=== PATIENT | female | born 2005 | race Caucasian/White ===

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

== ENCOUNTER 2024-10-17 23:50 | Inpatient (IN) | payer MEDICAID ==
[~2024-10-17] VITALS: Ht 167.6 cm; Wt 90.1 kg
[2024-10-18 00:09] LABS: BASOPHILS % (AUTO) 0.6 % (0-1); EOSINOPHILS # (AUTO) 0.2 X10'3 (0-0.9); EOSINOPHILS % (AUTO) 2.7 % (0-6); HEMATOCRIT 40.2 % (35.0-45.0); HEMOGLOBIN 14.2 g/dl (12.0-16.0); LYMPHOCYTES # (AUTO) 2.5 X10'3 (1.1-4.8); LYMPHOCYTES % (AUTO) 34.8 % (21-51); MEAN CORPUSCULAR HEMOGLOBIN 30.4 PG (27.0-31.0); MEAN CORPUSCULAR HGB CONC 35.4 g/dL (33.0-36.5); MEAN CORPUSCULAR VOLUME 85.9 FL (78-98); MONOCYTES # (AUTO) 0.5 X10'3 (0-0.9); MONOCYTES % (AUTO) 6.7 % (2-12); NEUTROPHILS % (AUTO) 55.2 % (42-75); PLATELET COUNT 320 X10'3 (140-440); RED BLOOD COUNT 4.68 X10'6 (4.20-5.60); RED CELL DISTRIBUTION WIDTH 13.8 % (11.5-14.5); WHITE BLOOD COUNT 7.3 X10'3 (4.5-11.0)
[2024-10-18 00:21] LABS: ALANINE AMINOTRANSFERASE 390 U/L (12-78); ALBUMIN 4.1 G/DL (3.4-5.0); ALBUMIN/GLOBULIN RATIO 1.1 (1.1-1.5); ALKALINE PHOSPHATASE 114 IU/L (46-116); ANION GAP 8 (8-16); ASPARTATE AMINO TRANSFERASE 574 U/L (10-37); BILIRUBIN,TOTAL 1.2 MG/DL (0.1-1.0); BLOOD UREA NITROGEN 11 MG/DL (7-18); BUN/CREATININE RATIO 13.3 (10.0-20.0); CALCIUM 9.5 MG/DL (8.5-10.1); CHLORIDE 105 MMOL/L (99-107); CREATININE 0.83 MG/DL (0.40-0.90); GLUCOSE 95 MG/DL (70-104); LIPASE 67 U/L (16-77); POTASSIUM 3.5 MMOL/L (3.5-5.1); SODIUM 141 MMOL/L (135-145); TOTAL CARBON DIOXIDE 28.4 MMOL/L (24-32); TOTAL PROTEIN 7.7 G/DL (6.4-8.2); eCRCL 100 ML/MIN; eGFR 87 ML/MIN
[2024-10-18] MEDS: morphine 4 MG/ML inj SYRINge IV ONE (01:12)
[2024-10-18] MEDS: normal saline 1000ml 1,000 ML IV ONE (01:12)
[2024-10-18] MEDS: ondansetron/PF 4mg/2ml inj IV ONE (01:12)
[2024-10-18] MEDS: piperacillin/tazo 4.5gm/100ml 100 ML IV SCH (03:24)
[2024-10-18] MEDS ORDERED: mag hydrox/Alum hydrox/simeth 30ml oral suspension PO PRN (03:30)
[2024-10-18] MEDS ORDERED: potassium Cl 20 mEq SR tablet PO PRN ×2 (03:30)
[2024-10-18] MEDS ORDERED: magnesium hydroxide 30ml (MOM) UD suspension PO PRN (03:30)
[2024-10-18] MEDS ORDERED: acetaminophen 325mg tablet PO PRN (03:30)
[2024-10-18] MEDS ORDERED: magnesium sulf-water 4G/100mL 100 ML IV PRN (03:30)
[2024-10-18] MEDS ORDERED: magnesium Cl slow-release 64mg tablet PO PRN (03:30)
[2024-10-18] MEDS ORDERED: potassium Cl 40MEQ/1/2NS 520ml 520 ML IV PRN (03:30)
[2024-10-18] MEDS ORDERED: ondansetron/PF 4mg/2ml inj IV PRN (03:30)
[2024-10-18] MEDS ORDERED: magnesium sulf-water 2g/50mL 50 ML IV PRN (03:30)
[2024-10-18 03:41] LABS: BILIRUBIN,URINE SMALL (Neg); CLARITY,URINE SLIGHTLY CLOUDY (Clear); COLOR,URINE YELLOW (Yellow); GLUCOSE, URINE NEGATIVE (Neg); KETONES,URINE 15 mg/dl (Neg); LEUKOCYTE ESTERASE ,URINE NEGATIVE (Neg); NITRITES, URINE NEGATIVE (Neg); OCCULT BLOOD,URINE LARGE (Neg); PROTEIN,URINE NEGATIVE (Neg)
[2024-10-18 03:42] LABS: URINE HCG NEGATIVE (NEG)
[2024-10-18 03:46] LABS: UA COLLECTION TYPE CLN CATCH MIDSTREAM
[2024-10-18 03:47] LABS: BACTERIA,URINE 1+ /HPF (Neg); MUCUS STRANDS FEW /LPF (Neg); RBC,URINE 50-100 /HPF (0-2); SQUAMOUS EPITHELIAL CELL,UR FEW /LPF (FEW); WBC,URINE 0-4 /HPF (0-4)
[2024-10-18] MEDS: normal saline 1000ml 1,000 ML IV SCH (03:57)
[2024-10-18 04:37] LABS: HCG SERUM QL NEGATIVE
[2024-10-18 04:38] LABS: POTASSIUM 3.5 MMOL/L (3.5-5.1)
[2024-10-18 04:39] LABS: APTT 26 SECONDS (22-32); INR 1.1 INR; PROTHROMBIN TIME 11.1 SECONDS (9.0-12.0)
[2024-10-18] MEDS: normal saline 1000ml 1,000 ML IVB ONE (06:20)
[2024-10-18] MEDS ORDERED: BUSP10TA11 PO (06:24)
[2024-10-18] MEDS ORDERED: FLUO10TA34 PO (06:24)
[2024-10-18] MEDS ORDERED: SEMA1PEN5 SUBCUT (06:24)
[2024-10-18] MEDS ORDERED: busPIRone 5mg tablet PO PRN (07:30)
[2024-10-18] MEDS: K and/or MAG REPLACEMENT MC SCH (07:40)
[2024-10-18] MEDS: docusate sod 100mg capsule PO SCH (07:40)
[2024-10-18] MEDS: SINCALIDE IV ONE ×2 (07:51→08:01)
[2024-10-18] MEDS: NORMAL SALINE IV ONE ×2 (07:51→08:01)
[2024-10-18] MEDS: morphine 2 MG/ML inj. syringe IV PRN ×2 (08:02→12:45)
[2024-10-18 11:10] VITALS: BP 115/63; PULSE 76; RESP 17; TEMP 97.8; O2SAT 99
[2024-10-18] MEDS: piperacillin/tazo 3.375gm/50ml 50 ML IV SCH (12:00)
[2024-10-18 12:45] VITALS: RESP 17; O2SAT 96
[2024-10-18] MEDS: FLU VACC TS2024-25(6MOS UP)/PF 45 MCG/0.5 ML SYRINGE IMVAC ONE (14:22)
[2024-10-18 18:00] VITALS: BP 116/80; PULSE 75; RESP 18; TEMP 98; O2SAT 97
[2024-10-18 20:00] VITALS: RESP 18; O2SAT 96
[2024-10-18 22:00] VITALS: BP 96/48; PULSE 65; RESP 14; TEMP 99; O2SAT 96
[2024-10-19 05:11] LABS: BASOPHILS # (AUTO) 0.1 X10'3 (0-0.2); BASOPHILS % (AUTO) 1.3 % (0-1); EOSINOPHILS # (AUTO) 0.3 X10'3 (0-0.9); EOSINOPHILS % (AUTO) 5.9 % (0-6); HEMATOCRIT 36.6 % (35.0-45.0); HEMOGLOBIN 12.6 g/dl (12.0-16.0); LYMPHOCYTES % (AUTO) 38.2 % (21-51); MEAN CORPUSCULAR HEMOGLOBIN 30.1 PG (27.0-31.0); MEAN CORPUSCULAR HGB CONC 34.5 g/dL (33.0-36.5); MEAN CORPUSCULAR VOLUME 87.3 FL (78-98); MEAN PLATELET VOLUME 8.2 FL (7.4-10.4); MONOCYTES # (AUTO) 0.3 X10'3 (0-0.9); NEUTROPHILS # (AUTO) 2.6 X10'3 (1.8-7.7); NEUTROPHILS % (AUTO) 48.6 % (42-75); PLATELET COUNT 266 X10'3 (140-440); RED BLOOD COUNT 4.19 X10'6 (4.20-5.60); RED CELL DISTRIBUTION WIDTH 13.9 % (11.5-14.5); WHITE BLOOD COUNT 5.3 X10'3 (4.5-11.0)
[2024-10-19 05:31] LABS: ALANINE AMINOTRANSFERASE 436 U/L (12-78); ALBUMIN 3.2 G/DL (3.4-5.0); ALBUMIN/GLOBULIN RATIO 1.1 (1.1-1.5); ALKALINE PHOSPHATASE 105 IU/L (46-116); ANION GAP 7 (8-16); ASPARTATE AMINO TRANSFERASE 228 U/L (10-37); BILIRUBIN,TOTAL 1.3 MG/DL (0.1-1.0); BLOOD UREA NITROGEN 5 MG/DL (7-18); BUN/CREATININE RATIO 6.6 (10.0-20.0); CALCIUM 8.4 MG/DL (8.5-10.1); CHLORIDE 108 MMOL/L (99-107); CHOL/HDL RATIO 2.3 (0.00-4.99); CHOLESTEROL 111 MG/DL (0-200); CREATININE 0.76 MG/DL (0.40-0.90); GLUCOSE 72 MG/DL (70-104); HDL CHOLESTEROL 48 MG/DL (35-60); LDL CHOLESTEROL 54 MG/DL (50-100); MAGNESIUM 1.7 MG/DL (1.5-2.4); POTASSIUM 3.7 MMOL/L (3.5-5.1); SODIUM 141 MMOL/L (135-145); TOTAL CARBON DIOXIDE 26.3 MMOL/L (24-32); TRIGLYCERIDES 70 MG/DL (20-135); eCRCL 110 ML/MIN; eGFR > 90 ML/MIN
[2024-10-19 06:00] VITALS: BP 99/57; PULSE 78; RESP 14; TEMP 98.5; O2SAT 96
[2024-10-19 08:15] VITALS: RESP 16; O2SAT 5
[2024-10-19 09:43] VITALS: BP 112/73; PULSE 77; RESP 16; TEMP 98.6; O2SAT 98
[2024-10-19] MEDS ORDERED: ONDA-243 PO (10:10)
[2024-10-20 07:09] LABS: HBSAG SCREEN Negative (Negative); HEP A AB, IGM Negative (Negative); HEPATITIS C VIRUS ANTIBODY Non Reactive (Non Reactive)
[2024-10-20] MEDS ORDERED: FLUoxetine 10mg capsule PO SCH (07:30)
== END 2024-10-19 12:44 | disposition home or self-care (01) ==
LOC: ER 23:51 → ED HOLD 10-18 03:31 → SUR 3N 10-18 11:06
PROVIDERS: ADMIT Internal Medicine Pulmonary Disease; ATTEND Family Medicine
PROC: CF141ZZ Planar Nuclear Medicine Imaging of Gallbladder using Technetium 99m (Tc-99m) (ICD-10-PCS; principal; 2024-10-18)
PROC: 3E02340 Introduction of Influenza Vaccine into Muscle, Percutaneous Approach (ICD-10-PCS; 2024-10-18)
DX: K80.50 Calculus of bile duct without cholangitis or cholecystitis without obstruction (principal); E28.2 Polycystic ovarian syndrome; E66.9 Obesity, unspecified; F32.A Depression, unspecified; Z68.32 Body mass index [BMI] 32.0-32.9, adult; Z23 Encounter for immunization
CPT/HCPCS: 36415; 71045; 74181; 76700; 78226; 80053; 80061; 81001; 81025; 83036; 83690; 83735; 84132; 84145; 84703; 85025; 85610; 85730; 86709; 86803; 87081; 87340; 87522; 90686; 99285; A9537; G0378; J2270; J2405; J2543; J7030

== ENCOUNTER 2025-02-17 13:12 | Emergency (ER) | payer SELFPAY ==
[~2025-02-17] VITALS: Ht 170.2 cm; Wt 102.2 kg
[~2025-02-17 13:12] MED LIST: BUSP10TA11 PO; FLUO10TA34 PO; ONDA-243 PO; SEMA1PEN5 SUBCUT
[2025-02-17 13:20] VITALS: BP 107/39; PULSE 71; RESP 16; O2SAT 100
--- NOTE | 2025-02-17 13:38 | ELECTROCARDIOGRAPH REPORT ---
[facility] Test Date: 2025-02-17 Test Time: 13:36:02 Pat Name: ERIN ESPITIA Department: EMERGENCY ROOM Room: Gender: F [employer] Attendant: MUKUND : 2005 Requested By: DEX BRIDGES Order Number: [id number] Reading MD: Dr. Price Alcala Measurements Intervals [place] Rate: 80 P: 7 [place]: 179 QRS: 26 QRSD: 85 T: 26 QT: 383 QTc: 442 Interpretive Statements Sinus rhythm Borderline T abnormalities, anterior leads Electronically Signed On 02-17-2025 18:29:[address] Price Alcala Please click the below link to view image of tracing.
--- NOTE | 2025-02-17 14:00 | Physician Documentation ---
History of Present Illness ~ Chief Complaint: Syncope Stated Complaint: SYNCOPAL EPISODE Time Seen by MD: 13:47 HPI 19-year-old female who states she was sitting down at a nail salon and had a syncopal episode. Denies any head strikes states she was experiences before. Denies any current nausea or any symptoms currently. Denies any recent history of dehydration. Medication Reconciliation Allergies: Coded Allergies: No Known Allergies (Unverified , 10/17/24) Scheduled Fluoxetine HCl (Fluoxetine HCl), 1 TAB PO Q7D, (Reported) Semaglutide (Wegovy), 1 MG SUBCUT Q7D, (Reported) Scheduled PRN Buspirone Hcl* (Buspar*), 1 TAB PO PRN PRN for anxiety, (Reported) ONDANSETRON ODT 4mg tablet (Ondansetron Odt), 1 TAB PO Q6H PRN PRN for nausea/vomiting Past Medical History Past Medical History: No Pertinent History Past Surgical History: no surgical history Patient History: Anxiety disorder Borderline diabetes mellitus FH: diabetes mellitus FATHER MOTHER Drug Use: none Lives In: Home Occupation: employed Physical Exam Vital Signs: Temperature: 98.1, Source: Oral, Heart Rate: 71, Respiratory Rate: 16, BP: 107/39, Pulse Oximetry: 100, Weight: 102.200 Oxygen Flow Rate: 0 Progress Results/Orders Results/Orders Completed Orders - COLLIN MERCADO NP Cbc/Diff (02/17/25 13:48) CMP (02/17/25 13:48) Vital Signs 02/17/25 13:20 Temp 98.1 Pulse 71 Resp 16 B/P (MAP) 107/39 Pulse Ox 100 O2 Flow Rate 0 Laboratory Tests Test 02/17/25 14:09 02/17/25 14:19 Sodium Level 140 Potassium Level 3.7 Chloride Level 104 Carbon Dioxide Level 28.6 Anion Gap 7 L Blood Urea Nitrogen 11 Creatinine 0.71 Estimated GFR/1.73 m2 > 90 BUN/Creatinine Ratio 15.5 Glucose Level 88 Calcium Level 8.7 Total Bilirubin 0.8 Aspartate Amino Transf (AST/SGOT) 17 Alanine Aminotransferase (ALT/SGPT) 33 Alkaline Phosphatase 103 Total Protein 7.1 Albumin 3.8 Globulin 3.3 Albumin/Globulin Ratio 1.2 Chemistry Comments White Blood Count 9.6 Red Blood Count 4.50 Hemoglobin 13.2 Hematocrit 38.7 Mean Corpuscular Volume 86.0 Mean Corpuscular Hemoglobin 29.2 Mean Corpuscular Hemoglobin Concent 34.0 Red Cell Distribution Width 13.9 Platelet Count 364 Mean Platelet Volume 7.3 L Neutrophils (%) (Auto) 66.5 Lymphocytes (%) (Auto) 23.8 Monocytes (%) (Auto) 7.0 Eosinophils (%) (Auto) 2.1 Basophils (%) (Auto) 0.6 Neutrophils # (Auto) 6.3 Lymphocytes # (Auto) 2.3 Monocytes # (Auto) 0.7 Eosinophils # (Auto) 0.2 Basophils # (Auto) 0.1 CBC Comment Medical Decision Making Findings patient's laboratory values with nothing remarkable to report back.. I discussed with the patient that dehydration keep gone mild hypotension and lack of sleep can all attribute to the cause of syncope.. Recommend that she follows up with her primary care for further evaluation. Did reassure patient that there was nothing emergent that the requires further evaluation Differential Dx:Considerations: Include: anemia, CVA, cerebral occlusion, cerebral thrombosis, dehydration, dysrhythmia, electrolyte disorder, encephalopathy, hypoglycemia, hypovolemia, labyrinthitis, Meniere's disease, myocardial infarction, pulmonary embolus, TIA, vasovagal, VBI, vertigo central, vertigo peripheral, vestibular neuronitis, other Departure Disposition: 01 HOME / SELF CARE / HOMELESS Impression: Primary Impression: Syncope Condition: Stable Discharge Instructions: Hypotension, Mdca-it-Tkrs, Orthostatic Hypotension, Dehydration, Adult Referrals: NO PRIMARY CARE PROVIDER (PCP) Signature Scribe Signature: g Attestation: The note accurately reflects work and decisions made by me.Collin Nair NP 02/17/25 15:03 COLLIN MERCADO NP February 17, 2025 14:00
[2025-02-17 14:33] LABS: BASOPHILS # (AUTO) 0.1 X10'3 (0-0.2); BASOPHILS % (AUTO) 0.6 % (0-1); EOSINOPHILS # (AUTO) 0.2 X10'3 (0-0.9); EOSINOPHILS % (AUTO) 2.1 % (0-6); HEMATOCRIT 38.7 % (35.0-45.0); HEMOGLOBIN 13.2 g/dl (12.0-16.0); LYMPHOCYTES # (AUTO) 2.3 X10'3 (1.1-4.8); LYMPHOCYTES % (AUTO) 23.8 % (21-51); MEAN CORPUSCULAR HEMOGLOBIN 29.2 PG (27.0-31.0); MEAN PLATELET VOLUME 7.3 FL (7.4-10.4); MONOCYTES # (AUTO) 0.7 X10'3 (0-0.9); NEUTROPHILS # (AUTO) 6.3 X10'3 (1.8-7.7); NEUTROPHILS % (AUTO) 66.5 % (42-75); PLATELET COUNT 364 X10'3 (140-440); RED CELL DISTRIBUTION WIDTH 13.9 % (11.5-14.5); WHITE BLOOD COUNT 9.6 X10'3 (4.5-11.0)
[2025-02-17 14:47] LABS: ALANINE AMINOTRANSFERASE 33 U/L (12-78); ALBUMIN 3.8 G/DL (3.4-5.0); ALBUMIN/GLOBULIN RATIO 1.2 (1.1-1.5); ALKALINE PHOSPHATASE 103 IU/L (46-116); ANION GAP 7 (8-16); ASPARTATE AMINO TRANSFERASE 17 U/L (10-37); BILIRUBIN,TOTAL 0.8 MG/DL (0.1-1.0); BLOOD UREA NITROGEN 11 MG/DL (7-18); BUN/CREATININE RATIO 15.5 (10.0-20.0); CALCIUM 8.7 MG/DL (8.5-10.1); CHLORIDE 104 MMOL/L (99-107); CREATININE 0.71 MG/DL (0.40-0.90); GLUCOSE 88 MG/DL (70-104); POTASSIUM 3.7 MMOL/L (3.5-5.1); SODIUM 140 MMOL/L (135-145); TOTAL CARBON DIOXIDE 28.6 MMOL/L (24-32); TOTAL PROTEIN 7.1 G/DL (6.4-8.2); eCRCL 122 ML/MIN; eGFR > 90 ML/MIN
[2025-02-17 15:02] VITALS: TEMP 98.1
== END 2025-02-17 15:04 | disposition home or self-care (01) ==
LOC: ER 13:12
DX: R55 Syncope and collapse (principal); F41.9 Anxiety disorder, unspecified
CPT/HCPCS: 36415; 80053; 85025; 93005; 99284